=== PATIENT | female | born 1980 | race Caucasian/White ===

== ENCOUNTER 2017-04-04 18:34 | Emergency (ER) | payer BC, OTHER ==
[~2017-04-04] VITALS: Ht 165.1 cm; Wt 70.5 kg
[~2017-04-04 18:34] MED LIST: CLX20 PO; LITH150C PO; PRED20TA PO; SUMA50TA15 PO; SUMA6KIT2 SQ
[2017-04-04 18:36] VITALS: TEMP 37.1; Ht 165.1 cm; Wt 70.5 kg
[2017-04-04] MEDS ORDERED: MoRPHine SULFATE 4 MG/ML 1 ML CARP\\VIAL IV STA (18:45)
[2017-04-04] MEDS ORDERED: ONDANSETRON INJ 2 MG/ML 2 ML VIAL IV STA (18:45)
[2017-04-04] MEDS ORDERED: SODIUM CHLORIDE 0.9% 500ML 500 ML IV STA (18:45)
[2017-04-04] MEDS ORDERED: LACT1CAP6 PO (18:58)
[2017-04-04] MEDS ORDERED: FLUO10CA48 PO (18:58)
[2017-04-04] MEDS ORDERED: FEXO1TAB49 PO (18:58)
[2017-04-04] MEDS ORDERED: MULT-506 PO (18:58)
[2017-04-04] MEDS ORDERED: OPTIRAY 320 IV PRN ×2 (19:00)
[2017-04-04 19:32] LABS: BASO % 0.4 %; BASO ABS # 0.04 K/uL (0-0.2); EOS % 3.4 %; EOS ABS # 0.36 K/uL (0-0.5); HEMATOCRIT 41.1 % (37-47); IG# 0.01 K/uL (0.00-0.02); LYMPH % 19.1 %; LYMPH ABS # 2.04 K/uL (1.2-3.4); MEAN CELL VOLUME 93.8 fL (80-100); MEAN CORPUSCULAR HGB CONC 34.1 g/dl (32-36); MEAN PLATELET VOLUME 10.5 fL (7.4-10.4); MONO % 6.3 %; MONO ABS # 0.67 K/uL (0.11-0.59); NEUT % 70.7 %; NEUT ABS # 7.54 K/uL (1.4-6.5); PLATELET COUNT 236 K/uL (130-400); RED CELL DISTRIBUTION WIDTH CV 12.3 % (11.5-14.5); RED CELL DISTRIBUTION WIDTH SD 42.2 fL (36.4-46.3); WHITE BLOOD COUNT 10.66 K/uL (4.8-10.8)
[2017-04-04 19:37] LABS: ISTAT CREATININE 0.8 mg/dl (0.6-1.3); ISTAT IONIZED CALCIUM 1.12 mmol/l (1.12-1.32); ISTAT POTASSIUM 3.8 mEq/L (3.3-5.0)
[2017-04-04] MEDS ORDERED: KETOROLAC TROMETHAMINE 30 MG/ML VIAL IV STA (19:44)
[2017-04-04 19:50] LABS: ALBUMIN 3.9 gm/dl (3.4-5.0); ALT/SGPT 74 U/L (12-78); AST/SGOT 47 U/L (15-37); BLOOD UREA NITROGEN 10 mg/dl (7-18); CALCIUM 8.2 mg/dl (8.5-10.1); CARBON DIOXIDE 28 mmol/L (21-32); CREATININE 0.71 mg/dl (0.60-1.20); GLUCOSE 92 mg/dl (70-99); LIPASE 197 U/L (73-393); POTASSIUM 3.8 mmol/L (3.5-5.1); SODIUM 139 mmol/L (136-145)
[2017-04-04 19:53] LABS: ALKALINE PHOSPHATASE 77 U/L (45-117); TOTAL PROTEIN 6.9 gm/dl (6.4-8.2)
--- NOTE | 2017-04-04 20:07 | DIAGNOSTIC IMAGING REPORT ---
ABDOMEN AND PELVIS CT WITH IV CONTRAST CT DOSE: 289.31 mGy.cm HISTORY: Right lower quadrant abdominal pain. TECHNIQUE: Multiaxial CT images of the abdomen and pelvis were performed following the use of intravenous contrast. A dose lowering technique was utilized adhering to the principles of ALARA. COMPARISON STUDY: None. FINDINGS: The lung bases are clear. No pneumoperitoneum. No pneumatosis. No fractures within the visualized osseous structures. The liver, gallbladder, spleen, pancreas, adrenal glands, kidneys unremarkable. The gallbladder is now well-distended but appears to be unremarkable. The uterus is within normal limits. Focal thickening within the mid sigmoid colon which measures 6 cm in length. There is mild surrounding pericolonic fat stranding. No perforation or abscess identified at this time. Moderate well-formed stool within the colon. No evidence for bowel obstruction. Normal appendix. A single mildly enlarged left external iliac lymph node which is likely reactive. Small right ovarian cyst measuring 1.5 cm. Dilated tubular structure within the left adnexa which measures 4.2 x 2.0 cm. This could represent a hydrosalpinx. IMPRESSION: 1. Focal thickening within the mid sigmoid colon with surrounding pericolonic fat stranding. This could represent an acute diverticulitis are nonspecific colitis. No perforation or abscess identified at this time. 2. Normal appendix. 3. Dilated tubular structure within the left adnexa which may represent a hydrosalpinx. Electronically signed by: Minh Larson M.D. 04/04/2017 8:06 PM Dictated Date/Time: 04/04/2017 7:58 PM
--- NOTE | 2017-04-04 21:47 | DIAGNOSTIC IMAGING REPORT ---
PELVIC ULTRASOUND, TRANSABDOMINAL AND TRANSVAGINAL HISTORY: Lower abdominal pain. COMPARISON: Abdomen and pelvis CT 04/04/2017. FINDINGS: Uterus: 8.8 x 3.5 x 6.0 cm. Multiple nabothian cysts. Endometrial stripe: The endometrium is top normal in thickness measuring up to 1.4 cm. Right ovary: Normal in size and demonstrates normal color flow. There is a 2 cm simple cyst. Left ovary: Normal in size and demonstrates normal color flow. Within the left adnexa there is a 3.6 x 2.5 x 1.9 cm dilated fluid-filled tubular structure. This favors a hydrosalpinx. Miscellaneous:Trace pelvic free fluid. IMPRESSION: 1. A 3.6 x 2.5 x 1.9 cm dilated fluid-filled tubular structure within the left adnexa which favors a hydrosalpinx. 2. The ovaries are within normal limits. 3. Trace pelvic free fluid. This is likely physiologic Electronically signed by: Minh Larson M.D. 04/04/2017 9:45 PM Dictated Date/Time: 04/04/2017 9:42 PM
[2017-04-04] MEDS ORDERED: CIPROFLOXACIN 500 MG TAB PO STA (22:16)
[2017-04-04] MEDS ORDERED: METRONIDAZOLE 250 MG TAB PO STA (22:16)
[2017-04-04] MEDS ORDERED: CIPR-255 PO (22:19)
[2017-04-04] MEDS ORDERED: METR-162 PO (22:19)
[2017-04-04 22:34] VITALS: BP 114/70; PULSE 75; O2SAT 100
--- NOTE | 2017-04-04 23:42 | EMERGENCY ROOM VISIT NOTE ---
History Report prepared by Kiera: Salo Quijano Under the Supervision of: Dr. Dakotah Coffman D.O. First contact with patient: 18:40 Chief Complaint: PELVIC PAIN Stated Complaint: PELVIC PAIN, SHARP, HEADACHE History of Present Illness The patient is a 36 year old female who presents to the Emergency Room with complaints of worsening pelvic pain starting a week ago. The patient states that the pain started in her lower abdomen and migrated into her pelvic area. She notes that the pain is sharp and worsened with having a bowel movement. Her last bowel movement was this morning, and it was pellet-like, and she has had similar bowel movements the past few days. She reports that her last period was 2 weeks ago, and she denies any chance of due to a tubal ligation ten years ago. The patient additionally reports having a headache and a runny nose, and she states that this headache is similar to her normal headaches. She states that she still has her appendix and her gall bladder. Pt denies change in vision, fevers, chest pain, shortness of breath, nausea, vomiting, diarrhea, pain with urination, vaginal bleeding, vaginal discharge, and melena. Source of History: patient Onset: a week ago Position: other (pelvis) Quality: sharp Timing: worsening Modifying Factors (Worsening): other (having a bowel movement) Associated Symptoms: + headache Note: Associated symptoms: Runny nose Review of Systems See HPI for pertinent positives & negatives. A total of 10 systems reviewed and were otherwise negative. Past Medical & Surgical Surgical Problems: (1) H/O tubal ligation Social History Smoking Status: Former Smoker Marital Status: Housing Status: lives with family Occupation Status: employed Current/Historical Medications Scheduled Ciprofloxacin Hcl (Cipro), 500 MG PO BID Fexofenadine Hcl (Celina Allergy), 180 MG PO DAILY Fluoxetine (Prozac), 10 MG PO DAILY Lactobacillus (Probiotic), 1 CAP PO DAILY Metronidazole (Flagyl), 500 MG PO TID Multivitamin (Multivitamin), 1 TAB PO DAILY Sumatriptan Succinate (Imitrex Statdose), 1 DOSE SQ PRN/UD Sumatriptan Succinate (Imitrex), 50 MG PO PRN/UD Allergies Coded Allergies: No Known Allergies (Verified , 04/04/17) Physical Exam Vital Signs Date Time Temp Pulse Resp B/P (MAP) Pulse Ox O2 Delivery O2 Flow Rate FiO2 04/04/17 22:34 75 15 114/70 100 04/04/17 21:29 75 15 121/75 99 Room Air 04/04/17 18:36 37.1 88 20 124/77 99 Room Air Physical Exam GENERAL: Sitting up in bed, alert, well appearing, well nourished, no distress, non-toxic EYE EXAM: normal conjunctiva. OROPHARYNX: no exudate, no erythema, lips, buccal mucosa, and tongue normal and mucous membranes are moist NECK: supple, no nuchal rigidity, no adenopathy, non-tender LUNGS: Clear to auscultation. Normal chest wall mechanics HEART: no murmurs, S1 normal and S2 normal ABDOMEN: Tender to palpation int her right lower quadrant. Abdomen soft, normo- active bowel sounds, no masses, no rebound or guarding. BACK: Back is symmetrical on inspection and there is no deformity, no midline tenderness, no CVA tenderness. PELVIC: declined SKIN: no rashes and no bruising UPPER EXTREMITIES: upper extremities are grossly normal. LOWER EXTREMITIES: No pitting edema. NEURO EXAM: Normal sensorium, cranial nerves II-XII grossly intact, normal speech, no gross weakness of arms, no gross weakness of legs. Ambulates without difficulty. Medical Decision & Procedures ER Provider Diagnostic Interpretation: Radiology results as stated below per my review and the radiologist's interpretation: ABDOMEN AND PELVIS CT WITH IV CONTRAST CT DOSE: 289.31 mGy.cm HISTORY: Right lower quadrant abdominal pain. TECHNIQUE: Multiaxial CT images of the abdomen and pelvis were performed following the use of intravenous contrast. A dose lowering technique was utilized adhering to the principles of ALARA. COMPARISON STUDY: None. FINDINGS: The lung bases are clear. No pneumoperitoneum. No pneumatosis. No fractures within the visualized osseous structures. The liver, gallbladder, spleen, pancreas, adrenal glands, kidneys unremarkable. The gallbladder is now well-distended but appears to be unremarkable. The uterus is within normal limits. Focal thickening within the mid sigmoid colon which measures 6 cm in length. There is mild surrounding pericolonic fat stranding. No perforation or abscess identified at this time. Moderate well-formed stool within the colon. No evidence for bowel obstruction. Normal appendix. A single mildly enlarged left external iliac lymph node which is likely reactive. Small right ovarian cyst measuring 1.5 cm. Dilated tubular structure within the left adnexa which measures 4.2 x 2.0 cm. This could represent a hydrosalpinx. IMPRESSION: 1. Focal thickening within the mid sigmoid colon with surrounding pericolonic fat stranding. This could represent an acute diverticulitis are nonspecific colitis. No perforation or abscess identified at this time. 2. Normal appendix. 3. Dilated tubular structure within the left adnexa which may represent a hydrosalpinx. Electronically signed by: Minh Larson M.D. 04/04/2017 8:06 PM Dictated Date/Time: 04/04/2017 7:58 PM PELVIC ULTRASOUND, TRANSABDOMINAL AND TRANSVAGINAL HISTORY: Lower abdominal pain. COMPARISON: Abdomen and pelvis CT 04/04/2017. FINDINGS: Uterus: 8.8 x 3.5 x 6.0 cm. Multiple nabothian cysts. Endometrial stripe: The endometrium is top normal in thickness measuring up to 1.4 cm. Right ovary: Normal in size and demonstrates normal color flow. There is a 2 cm simple cyst. Left ovary: Normal in size and demonstrates normal color flow. Within the left adnexa there is a 3.6 x 2.5 x 1.9 cm dilated fluid-filled tubular structure. This favors a hydrosalpinx. Miscellaneous:Trace pelvic free fluid. IMPRESSION: 1. A 3.6 x 2.5 x 1.9 cm dilated fluid-filled tubular structure within the left adnexa which favors a hydrosalpinx. 2. The ovaries are within normal limits. 3. Trace pelvic free fluid. This is likely physiologic Electronically signed by: Minh Larson M.D. 04/04/2017 9:45 PM Dictated Date/Time: 04/04/2017 9:42 PM Laboratory Results 04/04/17 19:20 Red Blood Count 4.38, Mean Corpuscular Volume 93.8, Mean Corpuscular Hemoglobin 32.0, Mean Corpuscular Hemoglobin Concent 34.1, Mean Platelet Volume 10.5, Neutrophils (%) (Auto) 70.7, Lymphocytes (%) (Auto) 19.1, Monocytes (%) (Auto) 6.3, Eosinophils (%) (Auto) 3.4, Basophils (%) (Auto) 0.4, Neutrophils # (Auto) 7.54, Lymphocytes # (Auto) 2.04, Monocytes # (Auto) 0.67, Eosinophils # (Auto) 0.36, Basophils # (Auto) 0.04 04/04/17 19:20 Test 04/04/17 19:11 04/04/17 19:20 04/04/17 19:24 Urine Color YELLOW Urine Appearance CLEAR (CLEAR) Urine pH >= 9.0 (4.5-7.5) Urine Specific Rydal 1.020 (1.000-1.030) Urine Protein NEG (NEG) Urine Glucose (UA) NEG (NEG) Urine Ketones NEG (NEG) Urine Occult Blood NEG (NEG) Urine Nitrite NEG (NEG) Urine Bilirubin NEG (NEG) Urine Urobilinogen NEG (NEG) Urine Leukocyte Esterase NEG (NEG) Urine WBC (Auto) 1-5 /hpf (0-5) Urine RBC (Auto) 5-10 /hpf (0-4) Urine Hyaline Casts (Auto) 1-5 /lpf (0-5) Urine Epithelial Cells (Auto) >30 /lpf (0-5) Urine Bacteria (Auto) NEG (NEG) Urine Test NEG (NEG) White Blood Count 10.66 K/uL (4.8-10.8) Red Blood Count 4.38 M/uL (4.2-5.4) Hemoglobin 14.0 g/dL (12.0-16.0) Hematocrit 41.1 % (37-47) Mean Corpuscular Volume 93.8 fL (80-100) Mean Corpuscular Hemoglobin 32.0 pg (25-34) Mean Corpuscular Hemoglobin Concent 34.1 g/dl (32-36) Platelet Count 236 K/uL (130-400) Mean Platelet Volume 10.5 fL (7.4-10.4) Neutrophils (%) (Auto) 70.7 % Lymphocytes (%) (Auto) 19.1 % Monocytes (%) (Auto) 6.3 % Eosinophils (%) (Auto) 3.4 % Basophils (%) (Auto) 0.4 % Neutrophils # (Auto) 7.54 K/uL (1.4-6.5) Lymphocytes # (Auto) 2.04 K/uL (1.2-3.4) Monocytes # (Auto) 0.67 K/uL (0.11-0.59) Eosinophils # (Auto) 0.36 K/uL (0-0.5) Basophils # (Auto) 0.04 K/uL (0-0.2) RDW Standard Deviation 42.2 fL (36.4-46.3) RDW Coefficient of Variation 12.3 % (11.5-14.5) Immature Granulocyte % (Auto) 0.1 % Immature Granulocyte # (Auto) 0.01 K/uL (0.00-0.02) Est Creatinine Clear Calc Drug Dose 106.9 ml/min Estimated GFR () 126.1 Estimated GFR (Non- 108.8 BUN/Creatinine Ratio 13.8 (10-20) Calcium Level 8.2 mg/dl (8.5-10.1) Total Bilirubin 0.2 mg/dl (0.2-1) Direct Bilirubin < 0.1 mg/dl (0-0.2) Aspartate Amino Transf (AST/SGOT) 47 U/L (15-37) Alanine Aminotransferase (ALT/SGPT) 74 U/L (12-78) Alkaline Phosphatase 77 U/L (45-117) Total Protein 6.9 gm/dl (6.4-8.2) Albumin 3.9 gm/dl (3.4-5.0) Lipase 197 U/L (73-393) Bedside Hemoglobin 13.3 g/dl (12.0-16.0) Bedside Hematocrit 39 % (37-47) Bedside Sodium 140 mEq/L (135-144) Bedside Potassium 3.8 mEq/L (3.3-5.0) Bedside Chloride 102 mEq/L (101-112) Bedside Total CO2 27 mEq/l (24-31) Anion Gap 16.0 mmol/L (16-25) Bedside Blood Urea Nitrogen 8 mg/dl (7-18) Bedside Creatinine 0.8 mg/dl (0.6-1.3) Bedside Glucose (other) 91 mg/dl (70-99) Bedside Ionized Calcium (Mryna) 1.12 mmol/l (1.12-1.32) Laboratory results per my review. Medications Administered Medications (Trade) Dose Ordered Sig/Amando Route Start Time Stop Time Status Last Admin Dose Admin Sodium Chloride 500 ml @ 999 mls/hr Q31M STAT IV 04/04/17 18:45 04/04/17 19:15 DC 04/04/17 19:45 999 MLS/HR Ondansetron HCl (Zofran Inj) 4 mg NOW STAT IV 04/04/17 18:45 04/04/17 18:52 DC 04/04/17 19:48 4 MG Ketorolac Tromethamine (Toradol Inj) 30 mg NOW STAT IV 04/04/17 19:44 04/04/17 19:45 DC 04/04/17 19:49 30 MG Metronidazole (Flagyl Tab) 500 mg NOW STAT PO 04/04/17 22:16 04/04/17 22:17 DC 04/04/17 22:30 500 MG Ciprofloxacin (Cipro Tab) 500 mg NOW STAT PO 04/04/17 22:16 04/04/17 22:17 DC 04/04/17 22:30 500 MG ED Course ED COURSE: Vital signs were reviewed and showed normal vitals The patients medical record was reviewed The above diagnostic studies were performed and reviewed. ED treatments and interventions as stated above. 1840: The patient was evaluated in room B2. A complete history and physical examination was performed. 1845: Morphine Sulfate 4mg IV, Zofran 4mg IV, Sodium Chloride 500 ml @ 999 mls/ hr IV 1943: Toradol 30mg IV 2018: I reevaluated the patient, and she was going over to ultrasound. 2149: I reassessed the patient, and I updated her on her results. 6: Cipro Tab 500mg PO, Flagyl 500mg PO 0: Upon reevaluation, the patient is doing well, and she declined a pelvic exam. I discussed my findings with the patient and she understands and agrees with the treatment plan. Based on the patients age, coexisting illnesses, exam and lab findings the decision to treat as an outpatient was made. The patient remained stable while under my care. The patient appeared well at the time of discharge. Medical Decision Differential diagnoses includes but is not limited to gastritis, peptic ulcer disease, GERD, gallbladder disease, pancreatitis, small bowel obstruction, acute coronary syndrome, pericarditis, ischemic bowel, irritable bowel disease, irritable bowel syndrome, appendicitis, diverticulitis, malignancy, hernia, urinary tract infection, torsion, /ectopic , perforation, trauma, infectious. Patient is a 36-year-old female who presents to ER for lower abdominal pain which she notes is worse when sitting down. CBC all BMP, LFTs, bilirubin and lipase is unremarkable. UA was negative. was negative. CT abdomen and pelvis shows possible acute diverticulitis along with a likely hydrosalpinx. Ultrasound confirms this. With the possible acute diverticulitis patient was placed on Flagyl and Cipro. She is discharged follow -up as an outpatient following of prolonged discussion during which she preferred to have her pelvic performed as an outpatient tomorrow as she already has an appointment with gynecology. Discussed with Pt concerning signs and symptoms to watch out for. Pt was instructed to follow up with their PCP and discussed with the patient their option to return to the ED at anytime for persistent or worsening symptoms. The appropriate anticipatory guidance and out- patient management, including indications for return to the emergency department , were explained at length to the patient and understood. Medication Reconcilliation Current Medication List: was personally reviewed by me Blood Pressure Screening Patient's blood pressure: Normal blood pressure Impression Primary Impression: Diverticulitis Additional Impression: Hydrosalpinx Scribe Attestation The scribe's documentation has been prepared under my direction and personally reviewed by me in its entirety. I confirm that the note above accurately reflects all work, treatment, procedures, and medical decision making performed by me. Departure Information Dispostion Home / Self-Care Prescriptions Ciprofloxacin Hcl (CIPRO) 500 Mg Tab 500 MG PO BID, #20 TAB Prov: Dakotah Coffman DO 04/04/17 Metronidazole (FLAGYL) 500 Mg Tab 500 MG PO TID for 10 Days, #30 TAB Prov: Dakotah Coffman DO 04/04/17 Referrals Henrik Randle DO (PCP) Forms HOME CARE DOCUMENTATION FORM, IMPORTANT VISIT INFORMATION, WORK / SCHOOL INSTRUCTIONS Patient Instructions Diverticulimarie Lucia, My [facility] Additional Instructions Please follow up with your primary care doctor with in the next 24 hours. Any worsening of your symptoms, please return to the ED immediately. This includes any fevers greater than 100.4, worsening pain, chest pain, shortness breath, persistent nausea, vomiting, unable to eat or drink, or any other concerning signs or symptoms from your standpoint. Your CT shows stranding around your colon which could be suggestive of diverticulitis. CT and ultrasound also confirm hydrosalpinx which is swelling of your left ovarian tube. You're given antibiotics. Please continue these and follow up with your PCP within the next 24-48 hours for repeat abdominal check. Problem Qualifiers
== END 2017-04-04 22:35 | disposition home or self-care (01) ==
LOC: C.EDB 18:36
DX: R10.2 Pelvic and perineal pain (principal); R10.31 Right lower quadrant pain; R51 Headache; Z87.891 Personal history of nicotine dependence